=== PATIENT | female | born 1980 | race Hispanic/Latino ===

== ENCOUNTER 2018-10-26 08:30 | Inpatient (IN) | payer OTHER ==
[2018-10-26] MEDS ORDERED: Oxytocin 30 UNIT in NS 500 ml 30 UNITS/500 ML BAG IV ONE (08:45)
--- NOTE | 2018-10-26 08:46 | ED PDOC ---
HPI: Female Pain Time Seen by Provider: 10/26/18 08:32 Chief Complaint (Nursing): Abdominal Pain Chief Complaint (Provider): extramural delivery History Per: Patient, EMS, Family History/Exam Limitations: clinical condition Additional Complaint(s): 37yo female delivered baby girl at home just prior to arrival. Per dad, patient felt crampy this morning, he dropped off other child at daycare, when arrived home mom stated her water broke, then progressed to rapid labor and delivery. Otherwise uneventful thus far, been followed at [facility] due for induction labor monday, hence full term. Mom has no complaints, minimal bleeding, Dr Barron and Dr Brandon OB in ED room 14 to attend to mother, mother ra pidly transferred upstairs to L&D for placental delivery, skin to skin contact with baby provided. Past Medical History Reviewed: Historical Data, Nursing Documentation, Vital Signs Vital Signs: Last Vital Signs Temp 97.6 F 10/26/18 08:30 Pulse 104 H 10/26/18 08:30 Resp 23 10/26/18 08:30 BP 102/69 10/26/18 08:30 Pulse Ox 98 10/26/18 08:30 - Medical History PMH: Anemia - Surgical History Surgical History: No Surg Hx - Family History Family History: States: Unknown Family Hx - Living Arrangements Living Arrangements: With Family - Home Medications Home Medications: Ambulatory Orders Medication Instructions Recorded Pnv No.95/Ferrous Fum/Folic AC 1 tab PO DAILY 10/26/18 [Prenavite] - Allergies Allergies/Adverse Reactions: Allergies Allergy/AdvReac Type Severity Reaction Status Date / Time No Known Allergies Allergy Verified 10/26/18 09:15 Physical Exam - Reviewed Nursing Documentation Reviewed: Yes Vital Signs Reviewed: Yes - Physical Exam Appears: Positive for: Non-toxic Head Exam: Positive for: ATRAUMATIC Skin: Negative for: Diaphoresis, Pallor Cardiovascular/Chest: Positive for: Tachycardia Pelvic Exam: Positive for: Other (blood external exam, deferred full exam to [employer]ER) Extremity: Negative for: Swelling Neurological/Psych: Positive for: Awake, Alert, Normal Tone, Oriented - Laboratory Results Result Diagrams: 10/26/18 09:00 - ECG O2 Sat by Pulse Oximetry: 98 Medical Decision Making Medical Decision Making: mom transported to L&D under care OB Dr Brandon / Dr Barron approx 840am. Disposition - Clinical Impression Clinical Impression: Vaginal delivery - Patient ED Disposition Is Patient to be Admitted: Yes - Disposition Disposition Time: 08:45 Condition: FAIR - Pt Status Changed To: Hospital Disposition Of: Inpatient - Admit Certification Admit to Inpatient:: After my assessment, the patient will require hospitalization for at least two midnights. This is because of the severity of symptoms shown, intensity of services needed, and/or the medical risk in this patient being treated as an outpatient.
[2018-10-26] MEDS ORDERED: Lidocaine 2% MPF (5 ml) Inj ONE ×2 (08:48→15:06)
[2018-10-26] MEDS ORDERED: Oxycodone/Acetaminophen 5/325 mg Tab PO PRN ×8 (09:11→12:56)
[2018-10-26] MEDS ORDERED: Benzocaine/Menthol SPRAY TOP PRN ×4 (09:11→12:56)
[2018-10-26 09:16] VITALS: BMI 22.3
--- NOTE | 2018-10-26 09:20 | OBADHP ---
Datetime: 10/26/2018 09:17 IP Chief Complaint Other: delivered outside hospital Admit Comment, IP Provider: Patient is a @ term who delivered at home and was brought by sagar dahl to hospital. At time of admission, cord was clamped and cut, was on mother's chest, placen ta was still in utero. Patient reports +GBS, otherwise no other antepartum issues, no medical problem s, no allergies, no surgeries, previous vaginal delivery x 1. Patient was taken to labor and delivery and set up for delivery of placenta Pelvic Type - PN: Adequate Extremities - PN: Normal Abdomen - PN: Normal Back - PN: Normal Breast - PN: Normal Lungs - PN: Normal Heart - PN: Normal Thyroid - PN: Normal Neurologic - PN: Normal HEENT - PN: Normal General - PN: Normal Genitourinary Exam: Normal DTRs - PN: Normal IP Admit Plan: Admit to unit
[2018-10-26 09:21] LABS: BASO % 0.3 % (0.0-2.0); EOS % 0.1 % (0.0-4.0); HEMOGLOBIN 10.5 g/dL (12.0-16.0); LYMPH # 0.4 K/uL (1.0-4.3); LYMPH % 5.2 % (20.0-40.0); MEAN CELL VOLUME 73.4 fl (81.0-99.0); MEAN CORPUSCULAR HEMOGLOBIN 23.3 pg (27.0-31.0); MEAN CORPUSCULAR HGB CONC 31.7 g/dL (33.0-37.0); MEAN PLATELET VOLUME 8.5 fl (7.2-11.7); MONO # 0.4 K/uL (0.0-0.8); NEUT # 6.4 K/uL (1.8-7.0); NEUT % 89.4 % (50.0-75.0); NRBC % 0.1 % (0.0-0.0); PLATELET COUNT 204 K/uL (130-400); RBC 4.53 Mil/uL (3.80-5.20); RED CELL DISTRIBUTION WIDTH 16.3 % (11.5-14.5); WHITE BLOOD COUNT 7.2 K/uL (4.8-10.8)
--- NOTE | 2018-10-26 09:23 | OBDS ---
MATERNAL INFORMATION Delivery Anesthesia: Local Medications in Delivery: 2% Lidocaine, Pitocin 30 mu/500 mL NS Maternal Complications: None RN Comments: home delivery; pt brought to L_D from ER for placenta delivery. Placenta delivered spo ntaneously by Dr. Brandon at 0845. Pitocin 30 mu/500 ml NS infusing at 999 ml/h. Provider Comments: Live female infant delivered at home, infant on mother's chest and placed in warm er, cord had been clamped and cut outside of hospital, placenta delivered spontaneously, fundus firm, vaginal abrasions noted, 10mL of Lidocaine injected and repaired with 2-0 viryl rapide, EBL = 50mL, pt otherwise tolerated procedure well LABOR SUMMARY EDC: 11/04/2018 00:00 No. Babies in Womb: 1 LABOR INFORMATION Reason for Induction: Not Applicable Steroids Given: None Reason Steroids Not Administered: Not Applicable MEMBRANES Rupture of Membranes: 10/26/2018 07:45 Amniotic Fluid Color: Clear Amniotic Fluid Amount: Small
[2018-10-26 10:30] LABS: ANISOCYTOSIS SLIGHT; BANDS 1 % (0-2); HYPOCHROMIC SLIGHT; LYMPHOCYTE 6 % (20-50); MONOCYTE 6 % (0-10); NEUTROPHIL 87 % (42-75); PLATELET ESTIMATE NORMAL (NORMAL); TOTAL CELLS COUNTED 100
[2018-10-26 10:35] LABS: GIANT PLATELETS PRESENT; LARGE PLATELETS PRESENT; OVALOCYTES SLIGHT
[2018-10-27 05:35] LABS: BASO % 0.4 % (0.0-2.0); EOS # 0.1 K/uL (0.0-0.7); EOS % 0.7 % (0.0-4.0); HEMOGLOBIN 9.2 g/dL (12.0-16.0); LYMPH # 0.9 K/uL (1.0-4.3); LYMPH % 11.8 % (20.0-40.0); MEAN CELL VOLUME 73.7 fl (81.0-99.0); MEAN CORPUSCULAR HEMOGLOBIN 23.4 pg (27.0-31.0); MEAN CORPUSCULAR HGB CONC 31.8 g/dL (33.0-37.0); MEAN PLATELET VOLUME 8.8 fl (7.2-11.7); MONO # 0.7 K/uL (0.0-0.8); MONO % 9.6 % (0.0-10.0); NEUT # 5.8 K/uL (1.8-7.0); NEUT % 77.5 % (50.0-75.0); NRBC % 0.1 % (0.0-0.0); RBC 3.94 Mil/uL (3.80-5.20); RED CELL DISTRIBUTION WIDTH 16.5 % (11.5-14.5); WHITE BLOOD COUNT 7.5 K/uL (4.8-10.8)
--- NOTE | 2018-10-27 08:19 | OBPPN ---
Datetime: 10/27/2018 07:24 PP Pain Prov: Within normal limits PP Nausea Prov: Denies PP Flatus Prov: Yes PP BM Prov: No PP Breasts Prov: Normal PP Heart Prov: Normal PP Lungs Prov: Normal PP Abdomen/Uterus Prov: Normal PP Lochia Prov: Normal PP Vulva/Perineum Prov: Normal PP CVA Tenderness Prov: Normal PP Extremities Prov: Normal PP Progress Prov: Normal PP Impression Prov: Normal progression PP Plan Prov: Continue present management PP Progress Note Prov: 37 y/o PPD 1 sp home delivery of well baby female. Patient has no compla ints.Patient is tolerating PO regular diet w/o n or v. Patient is . Lochia is like mense s. +Flatus, -BM. Denies f/c/cp/sob/lightheadedness or dizziness. VS: wnl Cardio: s1s2 RRR Lungs: cta b/l Abd: soft, appropriate tenderness, fundus firm _ @ umbilicus; no rigidity, guarding or rebound ten derness Ext: nonedematous, calves nontender A/P: 37 y/o PPD 1 sp home delivery of well baby female. -C/w pain med regimen as needed -Ambulation _ encouraged -Anticiptaed dc 10/28/2018 Case discussed with attending -Cheyenne Khan, PGY-[address] Brandon: I evaluated patient independently and I agree with the above IP PP Procedures: None Vital Signs Provider PP: Reviewed; Within Normal Limits
[2018-10-27] MEDS: Multivitamin With Minerals Tab PO SCH (08:28)
[2018-10-27] MEDS ORDERED: Multivitamin With Minerals Tab PO SCH ×3 (09:00)
[2018-10-28] MEDS: Multivitamin With Minerals Tab PO SCH (08:25)
--- NOTE | 2018-10-28 10:09 | OBDCSUM ---
Datetime: 10/28/2018 07:52 Discharged to, Provider: Home Follow up at, Provider: [facility] Disch Instr Activity: Normal activity; May Shower Disch Instr Diet: Regular Discharge Instructions, Provider: Routine instructions given Discharge Diagnosis, Provider: Term Delivered Discharge Time: 10/28/2018 10:30 Follow up in weeks, Provider: In 4-6 weeks Disch Referrals: None Contraception discussed, Prov: Yes Disch Activity Restrictions: No exercising; No lifting; No sexual activity; Nothing in vagina - Inte rcourse, tampons, douche Discharge Comment, Provider: Discharge Summary DOA: 10/26/2018 EGA: 38.5 wks Diagnosis: S/P Home delivery, Summary of : 37 y/o , 38.5 weeks S/P Home Delivery on 10/26/18. L_D summary: Pt is s/p . Pain was well controlled with pain meds. No nausea. Tolerated regular diet well. Passing flatus, voiding well w/o difficulties. Breast feeding without difficulty. Lochia is similar to menses volume. DOL: 10/26/18, Home Delivery, 8:00 AM NB: Female : [birth year] Weight: 3293 gm Lochia= menses, Minimal pain, controlled with medications Blood type: O +, Antibody Neg CBC pp: 10.5/33.2, 9.2/29.1 Rubella Immune Discharge Date: 10/28/2018 Time 10:00 AM Discharge Instructions: -Encourage -Encourage ambulation -Ibuprofen for mild-moderate pain PRN -Continue vitamins at home - ED precautions: If excessive bleeding, pain that does not get relief, fever >100.4, palpitations , SOB, CP or other concerning symptom go to the ED. - PT was urged if feeling sad, mood swing, depression, neglect of baby, suicidal thoughts, homicid al thoughts go to ER or call 911 for help - Pt should go to her Primary care doctor if have difficulty with breast feeding - F/U at [facility] in 4-6 weeks for checkup. -- Martin Hickman MD, PGY-1 Discharge Diagnosis Prov Other: S/P Home Delivery Contraception after Delivery: Undecided
[2018-10-28 16:23] VITALS: BP 96/57; PULSE 60; RESP 20; TEMP 97.8; O2SAT 100
--- NOTE | 2018-10-29 09:44 | OBPPN ---
Datetime: 10/28/2018 07:48 PP Pain Prov: Within normal limits PP Nausea Prov: Denies PP Flatus Prov: Yes PP BM Prov: Yes PP Breasts Prov: Not Done PP Heart Prov: Normal PP Lungs Prov: Normal PP Abdomen/Uterus Prov: Normal PP Lochia Prov: Normal PP Vulva/Perineum Prov: Not Done PP CVA Tenderness Prov: Normal PP Extremities Prov: Normal PP C/S Incision Prov: Not Applicable PP Progress Prov: Normal PP Impression Prov: Normal progression PP Plan Prov: Continue present management; Discharge PP Progress Note Prov: 37 y/o PPD 2 s/p home delivery of well baby female. Patient has no compl aints.Patient is tolerating PO regular diet w/o n or v. Patient is well w/o difficultie s. Lochia is like menses. + Flatus, + BM. Denies f/c/cp/sob/lightheadedness/headache or dizziness. VS: WNL Cardio: s1s2 RRR Lungs: cta b/l Abd: soft, appropriate tenderness, fundus firm _ @ umbilicus; no rigidity, guarding or rebound ten derness Ext: nonedematous, calves nontender A/P: 37 y/o PPD 1 sp home delivery of well baby female. -C/w pain med regimen as needed -Ambulation _ encouraged -Continue present Mx -Anticiptaed d/c today 10/28/2018 Case discussed with attending Martin Hickman, PGY1 Addendum: Patient was seen independently by me and I agree with the note above Vital Signs Provider PP: Reviewed; Within Normal Limits
== END 2018-10-28 12:15 | disposition home or self-care (01) | DRG 807 ==
LOC: H.EROB2 08:30 → H.L&D 08:38 → H.OB/GYN 12:58
PROVIDERS: ADMIT Obstetrics & Gynecology; ATTEND Obstetrics & Gynecology
PROC: 10E0XZZ Delivery of Products of Conception, External Approach (ICD-10-PCS; principal; 2018-10-26)
PROC: 0UQG7ZZ Repair Vagina, Via Natural or Artificial Opening (ICD-10-PCS; 2018-10-26)
DX: Z39.0 Encounter for care and examination of mother immediately after delivery (principal); O70.0 First degree perineal laceration during delivery; Z37.0 Single live birth; Z3A.38 38 weeks gestation of pregnancy